=== PATIENT | female | born 1975 | race Caucasian/White ===

== ENCOUNTER 2023-03-20 12:53 | Emergency (ER) | payer OTHER ==
[~2023-03-20] VITALS: Ht 160 cm; Wt 61.2 kg
[2023-03-20 12:58] VITALS: BP_SYST 160; PULSE 88; RESP 18; TEMP 98; O2SAT 98
[2023-03-20] MEDS ORDERED: NACL 0.9% 1,000 ML IV ONE (13:15)
[2023-03-20] MEDS ORDERED: LORazepam 2 MG/ML VIAL IVP ONE (13:30)
[2023-03-20] MEDS ORDERED: ONDANSETRON HCL 4 MG/2 ML VIAL IVP ONE (13:30)
[2023-03-20] MEDS ORDERED: FOLIC ACID 1 MG, THIAMINE HCL 100 MG, MAGNESIUM SULFATE 1 GM, MVI 10 ML in NACL 0.9% 1,... IV ONE (13:30)
[2023-03-20 13:33] LABS: BASOPHILS # (AUTO) 0.1 K/uL (0.0-0.2); BASOPHILS % (AUTO) 0.6 % (0.0-2.0); EOSINOPHILS % (AUTO) 0.2 % (0.0-4.0); HEMATOCRIT 39.9 % (36-48); HEMOGLOBIN 13.2 g/dL (12.0-16.0); LYMPHOCYTES # (AUTO) 0.8 K/uL (1.0-5.5); LYMPHOCYTES % (AUTO) 7.7 % (20.5-51.5); MEAN CORPUSCULAR HEMOGLOBIN 32 pg (27-31); MEAN CORPUSCULAR HGB CONC 33 % (32-36); MEAN CORPUSCULAR VOLUME 98 fL (79.0-98.0); MONOCYTES # (AUTO) 0.6 K/uL (0.0-1.0); NEUTROPHILS # (AUTO) 8.3 K/uL (1.8-7.7); NEUTROPHILS % (AUTO) 85.5 % (40.0-70.0); PLATELET COUNT (AUTO) 339 K/uL (130-430); RED BLOOD CELL COUNT(AUTO) 4.08 MIL/uL (4.2-6.2); RED CELL DISTRIBUTION WIDTH 14.5 % (9.0-15.0); WHITE BLOOD COUNT (AUTO) 9.7 K/uL (4.8-10.8)
[2023-03-20] MEDS ORDERED: METOCLOPRAMIDE HCL 10 MG/2 ML VIAL IVP ONE (13:45)
[2023-03-20] MEDS ORDERED: DIPHENHYDRAMINE INJ 50 MG/ML VIAL IVP ONE (13:45)
[2023-03-20 13:55] LABS: ANION GAP 23 (5-15); CALCIUM 8.9 mg/dL (8.4-11.0); CHLORIDE 97 mmol/L (98-107); CREATININE 0.85 mg/dL (0.55-1.30); GFR AFRICAN AMERICAN 93 mL/min (>90); GLUCOSE 187 mg/dL (74-106); UREA NITROGEN, BLOOD 12 mg/dL (8-21)
[2023-03-20 13:55] LABS: BARBITURATE, URINE NEGATIVE (NEG <=200); BENZODIAZEPINE, URINE NEGATIVE (NEG <=150); CANNABINOID, URINE NEGATIVE (NEG <=50); COCAINE, URINE NEGATIVE (NEG <=150); METHAMPHETAMINES SCREEN,URINE NEGATIVE (NEG <=500); OPIATE, URINE NEGATIVE (NEG <=100); PHENCYCLIDINE SCREEN,URINE NEGATIVE (NEG <=25); URINE AMPHETAMINE NEGATIVE (NEG <=500); URINE METHADONE NEGATIVE (NEG <=200); URINE OXYCODONE SCREEN NEGATIVE (NEG <=100); URINE PROPOXYPHENE SCREEN NEGATIVE (NEG <=300)
[2023-03-20 13:56] LABS: UR TRICYCLIC ANTIDEPRESSANTS NEGATIVE (NEG <=300)
[2023-03-20 14:02] LABS: ALANINE AMINOTRANSFERASE 26 U/L (12-78); ALBUMIN 3.9 g/dL (3.4-4.8); ASPARTATE AMINOTRANSFERASE 33 U/L (10-37); LIPASE 107 U/L (73-393); TOTAL BILIRUBIN 0.9 mg/dL (0.0-1.0)
[2023-03-20 14:07] LABS: ALCOHOL, BLOOD < 3 mg/dL (<10)
[2023-03-20] MEDS ORDERED: THIAMINE HCL 100 MG, MAGNESIUM SULFATE 1 GM in NS 100 ML IV ONE (14:30)
[2023-03-20] MEDS ORDERED: FOLIC ACID 1 MG, MVI 10 ML in NACL 0.9% 1,000 ML IV ONE (14:30)
[2023-03-20] MEDS ORDERED: LIB25 PO (16:15)
[2023-03-20 18:31] VITALS: BP_SYST 147; PULSE 79; RESP 18; TEMP 98; O2SAT 98
== END 2023-03-20 18:31 | disposition home or self-care (01) ==
LOC: SED 12:53
DX: F10.239 Alcohol dependence with withdrawal, unspecified (principal); E87.1 Hypo-osmolality and hyponatremia; E87.8 Other disorders of electrolyte and fluid balance, not elsewhere classified; R56.9 Unspecified convulsions; R11.2 Nausea with vomiting, unspecified; F41.9 Anxiety disorder, unspecified; Z79.899 Other long term (current) drug therapy; Y90.6 Blood alcohol level of 120-199 mg/100 ml
CPT/HCPCS: 99284; 96365; 96375; 96361; 96366; 80307; 80053; 83690; 85025; 36415; 96368; J1200; J3490; J2060; J3475; J2765; J2405; J3411; J7030; G0482